=== PATIENT | female | born 1955 ===

== ENCOUNTER 2021-06-27 07:22 | Day surgery (SDC) | payer OTHER ==
[~2021-06-27 07:22] MED LIST: FENOFIBRATE150 MG PO; LOSARTAN-HCTZ1 EACH PO; NAPR500T14 PO; PANADOL MAXIMU500 MG PO
[2021-06-27] MEDS ORDERED: PERCOCET 5-3251 EACH PO (12:35)
[2021-06-27] MEDS ORDERED: IBU600 MG PO (12:35)
== END 2021-06-27 15:05 | disposition home or self-care (01) ==
LOC: CIR.AMB 07:22
PROVIDERS: ATTEND Obstetrics & Gynecology Gynecology
DX: N83.202 Unspecified ovarian cyst, left side (principal); Z20.822 Contact with and (suspected) exposure to COVID-19